=== PATIENT | female | born 1960 | race African-American/Black ===

== ENCOUNTER → 2017-05-15 | Outpatient (CLI) | payer OTHER, MEDICAID ==
[2016-07-04 14:44] VITALS: BP 172/79
== END | disposition home or self-care (01) ==
LOC: RAD 14:04
PROVIDERS: ATTEND Specialist
DX: S83.241D Other tear of medial meniscus, current injury, right knee, subsequent encounter (principal); X58.XXXD Exposure to other specified factors, subsequent encounter; M17.11 Unilateral primary osteoarthritis, right knee
CPT/HCPCS: 73721

== ENCOUNTER 2017-06-05 12:07 | Day surgery (SDC) | payer OTHER, MEDICAID ==
--- NOTE | 2017-06-05 13:39 | DR.UPDATE ---
H&P Update History and Physical Update: History and Physical reviewed and patient examined. Changes noted: NO Yes with the following:agree with H&P from Dr Parker. will proceed with interlaminar agustín L4-5 right.
[2017-06-05] MEDS ORDERED: KENALOG INJ 40 MG IM ONE (13:42)
[2017-06-05] MEDS ORDERED: XYLOCAINE 1 % (PLAIN) ONE (13:42)
[2017-06-05] MEDS ORDERED: MARCAINE 0.25% INJ ONE (13:42)
[2017-06-05 14:03] VITALS: BP 142/88
== END 2017-06-05 14:03 | disposition home or self-care (01) | DRG 552 ==
LOC: SURG1 12:07
PROVIDERS: ATTEND Specialist
PROC: 3E0R3BZ Introduction of Anesthetic Agent into Spinal Canal, Percutaneous Approach (ICD-10-PCS; 2017-06-05)
PROC: 3E0R33Z Introduction of Anti-inflammatory into Spinal Canal, Percutaneous Approach (ICD-10-PCS; principal; 2017-06-05 11:45)
DX: M54.31 Sciatica, right side (principal); M54.32 Sciatica, left side
CPT/HCPCS: 62323; 76000; S0020; J2001; J3301

== ENCOUNTER → 2017-07-26 | Day surgery (SDC) | payer OTHER, MEDICAID ==
[~2017-07-26] MED LIST: KENALOG INJ 40 MG IM ONE; MARCAINE 0.25% INJ ONE; XYLOCAINE 1 % (PLAIN) ONE
--- NOTE | 2017-07-26 12:51 | DR.UPDATE ---
H&P Update History and Physical Update: History and Physical reviewed and patient examined. Changes noted: NO Yes with the following:Agree with H&P from Dr Parker. will proceed with lumbar epidural steroid injection
[2017-07-26 13:35] VITALS: BP 191/93
== END | disposition home or self-care (01) | DRG 552 ==
LOC: SURG1 11:29
PROVIDERS: ATTEND Specialist
PROC: 3E0R3BZ Introduction of Anesthetic Agent into Spinal Canal, Percutaneous Approach (ICD-10-PCS; 2017-07-26)
PROC: 3E0R33Z Introduction of Anti-inflammatory into Spinal Canal, Percutaneous Approach (ICD-10-PCS; principal; 2017-07-26 12:15)
DX: M51.36 Other intervertebral disc degeneration, lumbar region (principal)
CPT/HCPCS: 62323; 76000; A4222; S0020; J2001; J3301

== ENCOUNTER 2017-11-20 13:40 | Day surgery (SDC) | payer OTHER, MEDICAID ==
[2017-11-20] MEDS ORDERED: KENALOG INJ 40 MG IM ONE (13:59)
[2017-11-20] MEDS ORDERED: MARCAINE 0.25% INJ ONE (13:59)
--- NOTE | 2017-11-20 14:00 | DR.UPDATE ---
H&P Update History and Physical Update: History and Physical reviewed and patient examined. Changes noted: NO Yes with the following:Agree with H&P from Dr Ramos. patient states relief for 2 months after previous agustín. Will Proceed with L4-5 agustín right side
[2017-11-20 14:34] VITALS: BP 114/69
== END 2017-11-20 14:31 | disposition home or self-care (01) | DRG 552 ==
LOC: SURG1 13:40
PROVIDERS: ATTEND Orthopaedic Surgery
PROC: 3E0R3BZ Introduction of Anesthetic Agent into Spinal Canal, Percutaneous Approach (ICD-10-PCS; 2017-11-20)
PROC: 3E0R33Z Introduction of Anti-inflammatory into Spinal Canal, Percutaneous Approach (ICD-10-PCS; principal; 2017-11-20 12:45)
DX: M54.31 Sciatica, right side (principal)
CPT/HCPCS: 62323; 76000; S0020; J3301